=== PATIENT | female | born 1975 ===

== ENCOUNTER 2023-01-15 16:42 | Outpatient (REF) | payer SELFPAY ==
[2023-01-17 12:07] LABS: Measles IgG Antibody Positive (See Note); Mumps Antibody IgG Positive (See Note)
[2023-01-17 12:13] LABS: Rubella IgG Ab (UVM) Positive (See Note); Varicella IgG Antibody Positive (See Note)
== END 2023-01-15 16:43 | disposition home or self-care (01) ==
LOC: LBN 16:42
PROVIDERS: Visit Provider Nurse Practitioner Family
DX: Z02.1 Encounter for pre-employment examination (principal); Z11.59 Encounter for screening for other viral diseases; Z01.84 Encounter for antibody response examination
CPT/HCPCS: 86787; 86735; 86762; 86765